=== PATIENT | male | born 1985 | race African-American/Black ===

== ENCOUNTER → 2017-10-10 | Outpatient (CLI) | payer OTHER ==
--- NOTE | 2017-10-10 10:18 | KCIC ---
MRI Brain without contrast History: Atypical migraine headache, new right-sided body numbness for the last 2 days Technique: Multiplanar, multisequential noncontrast MR imaging was performed of the brain. Contrast: None Comparison: None Findings: There is mild motion. There is no evidence of recent infarct or cytotoxic edema. The ventricles, sulci, and cisterns are within normal limits in size and configuration. There is no significant midline shift, intraaxial mass effect, or focal abnormal extra-axial fluid collection. There is no significant signal abnormality including hemosiderin deposition of the brain parenchyma. There is preservation of the major intracranial flow-voids at the skull base. The mastoid air cells are aerated. The cerebellar tonsils are normal in location. There is no significant abnormality of the pineal gland or pituitary gland. Paranasal sinuses are overall aerated. There is nonspecific heterogeneous low signal of the marrow of the clivus, although may be due to residual red marrow in a patient this age. Impression: 1. There is no significant intracranial abnormality. 2. There is decreased signal of the marrow of the clivus although may be due to residual marrow. Electronically signed by: Sylvester Steen MD (10/10/2017 10:14 AM) [id number]
== END | disposition home or self-care (01) ==
LOC: KCIC MRI 08:25
PROVIDERS: ATTEND Physician Assistant Medical
DX: G43.909 Migraine, unspecified, not intractable, without status migrainosus (principal)
CPT/HCPCS: 70551